=== PATIENT | male | born 1985 | race Caucasian/White ===

== ENCOUNTER 2017-01-11 01:12 | Emergency (ER) | payer SELFPAY ==
[2017-01-11 01:20] VITALS: PULSE 106; TEMP 98.6; BMI 27.3
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
[2017-01-11 02:12] VITALS: BP 152/89
[2017-01-11] MEDS ORDERED: TETANUS AND DIPHTHERIA TOXOID 0.5 ML DISP.SYRIN IM ONE (03:24)
[2017-01-11] MEDS ORDERED: ACETAMINOPHEN 325 MG TABLET (FP) PO ONE (03:33)
[2017-01-11] MEDS ORDERED: ACETAMINOPHEN 325 MG TABLET (FP) ONE (03:38)
== END 2017-01-11 04:00 | disposition home or self-care (01) ==
LOC: JER 01:12
PROC: 0HQ0XZZ Repair Scalp Skin, External Approach (ICD-10-PCS; principal; 2017-01-11)
DX: S01.01XA Laceration without foreign body of scalp, initial encounter (principal); S09.90XA Unspecified injury of head, initial encounter; Y04.2XXA Assault by strike against or bumped into by another person, initial encounter; Y93.89 Activity, other specified; Y92.410 Unspecified street and highway as the place of occurrence of the external cause
CPT/HCPCS: 70450-TC; 70486-TC; 72125-TC; 73130-TC-LT; 73130-TC-RT; 99281-25